=== PATIENT | male | born 1960 | race Caucasian/White ===

== ENCOUNTER 2016-07-02 07:34 | Day surgery (SDC) | payer BC ==
[2016-06-27 17:21] LABS: BASOPHILS 0.3 %; BASOPHILS ABSOLUTE 0.02 10/3/uL (0.0-0.16); EOSINOPHILS 0.5 %; EOSINOPHILS ABSOLUTE 0.03 10/3/uL (0.0-0.53); HEMATOCRIT 40.7 % (40.0-51.0); IMMATURE GRANULOCYTES 0.3 %; IMMATURE GRANULOCYTES ABSOLUTE 0.02 10/3/uL (0.0-0.11); LYMPHOCYTES 11.6 %; LYMPHOCYTES ABSOLUTE 0.74 10/3/uL (0.67-4.30); MEAN CORPUS HGB CONC 34.4 g/dL (32.0-36.0); MEAN PLATELET VOLUME 8.8 fL (9.2-13.0); MONOCYTES 8.2 %; MONOCYTES ABSOLUTE 0.52 10/3/uL (0.21-1.20); NEUTROPHILS 79.1 %; NEUTROPHILS ABSOLUTE 5.05 10/3/uL (2.02-8.40); PLATELET COUNT 220 10/3/uL (150-400); RBC DISTRIBUTION WIDTH 14.3 % (12.0-16.0); RED CELL COUNT 4.24 10/6/uL (4.7-6.1); WHITE BLOOD CELLS 6.4 10/3/uL (4.5-10.5)
[2016-06-27 17:22] LABS: MANUAL DIFF NO %
[2016-06-27 17:46] LABS: A/G RATIO 1.2 (0.7-1.9); ALBUMIN 4.2 G/DL (3.5-5.0); ALKALINE PHOSPHATASE 95 U/L (45-117); BUN (BLOOD UREA NITROGEN) 10 MG/DL (6-23); CALCIUM, SERUM 9.2 MG/DL (8.5-10.4); CHLORIDE, SERUM 100 MMOL/L (96-112); CO2 (CARBON DIOXIDE) 24 MMOL/L (24-34); CREATININE 0.94 MG/DL (0.70-1.30); GFR AFRICAN AMERICAN 106 ML/MIN (>=60); GFR NON AFRICAN AMERICAN 92 ML/MIN (>=60); GLOBULIN 3.5 G/DL (2.5-4.1); GLUCOSE, SERUM 113 MG/DL (60-99); POTASSIUM, SERUM 4.8 MMOL/L (3.5-5.3); SGOT(AST) 26 U/L (5-40); SGPT(ALT) 24 U/L (5-65); SODIUM, SERUM 138 MMOL/L (135-148); TOTAL BILIRUBIN 0.5 MG/DL (0-1.2); TOTAL PROTEIN 7.7 G/DL (6.0-8.5)
--- NOTE | ~2016-07-02 | PREOPHP ---
PreOp History and Physical [address] [place]. [address] NAME: MACK LAROSE : 64 STATUS : REG [facility]#: [id number] AGE: 56 ADM/REG DATE : 07/02/16 MR#: [id number] REPORT SERV DATE: 07/02/16 DICTATED BY: CARMEN WADE III DATE: 07/02/16 REPORT STATUS : Draft TRANSCRIBED BY: MODAntonella DATE: 07/02/16 HISTORY OF PRESENT ILLNESS: This is a 56-year-old male who comes to the operating room for removal of a right subclavian Port-A-Cath. The patient has a history of stage IV colorectal cancer. He is status post appropriate surgical treatment and chemotherapy. He has a right subclavian Port-A-Cath which has become dysfunctional. In addition, he has developed right internal jugular vein thrombosis. For this reason, he comes now for removal of his right subclavian vein Port-A-Cath. This procedure, the risks, benefits, and alternatives have been explained to him. PAST MEDICAL HISTORY: 1. History of stage IV colorectal cancer, status post appropriate surgical treatment with no evidence for disease currently. 2. History of internal jugular vein deep venous thrombosis. 3. History of tobacco abuse. MEDICATIONS: Eliquis, Benadryl, Nexium, Ativan. ALLERGIES: PENICILLIN. PHYSICAL EXAMINATION: GENERAL: He is a male, in no acute distress. He is alert and oriented x3. HEENT: Unremarkable. Cranial nerves II through XII normal. LUNGS: Clear. CARDIAC: Normal. He has a right infraclavicular subclavian Port-A-Cath in place. EXTREMITIES: Normal. ASSESSMENT: 1. 56-year-old male with history of stage IV colorectal disease, with no evidence for disease currently, with need for removal of right subclavian Port-A-Cath. 2. History of tobacco abuse. 3. History of right IJ thrombosis associated with right subclavian vein Port-A-Cath. PLAN: The patient comes to the operating room now for removal of his right subclavian Port-A Cath. This procedure, the risks, benefits, and alternatives, including not limited to the risk for bleeding, infection, air embolus, pericardial tamponade, dislodgement of the Port-A Cath tubing requiring extraction, and unforeseen complications including deep venous thrombosis, pulmonary embolus, myocardial infarction, stroke, pneumonia, and , have been explained to the patient. His questions have been answered. He understands the risks and agrees to the surgery as planned. NELSON/ELISA Carmen Aguilar History and Physical [address] [address] NAME: MACK LAROSE : 64 STATUS : REG [facility] PAT#: [id number] AGE: 56 ADM/REG DATE : 07/02/16 MR#: [id number] REPORT SERV DATE: 07/02/16 DICTATED BY: CARMEN WADE III DATE: 07/02/16 REPORT STATUS : Draft TRANSCRIBED BY: ELISA DATE: 07/02/16 Geovany Wade III, M.D. / [id number] CC: Param Womack III, M.D.
--- NOTE | ~2016-07-02 | PREOPHP ---
PreOp History and Physical [address] [place]. [address] NAME: MACK LAROSE : 64 STATUS : REG [facility]#: [id number] AGE: 56 ADM/REG DATE : 07/02/16 MR#: [id number] REPORT SERV DATE: 07/04/16 DICTATED BY: CARMEN WADE III DATE: 06/21/16 REPORT STATUS : Draft TRANSCRIBED BY: MODAntonella DATE: 06/21/16 HISTORY OF PRESENT ILLNESS: This 56-year-old male comes to the operating room for removal of a subclavian Port-A-Cath. The patient has a history of metastatic colorectal cancer. He is status post appropriate surgical treatment, chemotherapy, and treatment for his hepatic metastases. He is considered now to be in remission. He has recently developed a right internal jugular vein thrombosis related to the right subclavian vein Port-A-Cath. He comes now for removal of this Port-A-Cath. PAST MEDICAL HISTORY: 1. History of stage IV colorectal cancer with three documented hepatic metastases, two being surgically resected and the other being treated with radiofrequency ablation. 2. History of neoadjuvant chemotherapy prior to surgery. 3. History of right colon cancer, status post right colectomy performed on 09/21/2014. 4. Hypertension. 5. History of alcohol abuse. SOCIAL HISTORY: The patient is a physical therapist. He is . He has a history of daily alcohol use. FAMILY HISTORY: Positive for colon cancer. REVIEW OF SYSTEMS: Otherwise unremarkable. MEDICATIONS: As per medication list. ALLERGIES: TO PENICILLIN. PHYSICAL EXAMINATION: GENERAL: This is a male, in no acute distress. He is alert and oriented x3. He has some swelling of the neck and face. HEENT: Otherwise unremarkable. NEUROLOGIC: Cranial nerves II through XII are normal. LUNGS: Clear. CARDIAC: Normal. ABDOMEN: Soft and nontender. EXTREMITIES: Normal. LABORATORY DATA: Recent imaging studies showed right IJ thrombosis. ASSESSMENT: 1. A 56-year-old male with history of colorectal cancer with hepatic metastases, status post chemotherapy, surgery and radiofrequency ablation, now in remission. 2. Recent right internal jugular vein thrombosis related to his current Port-A-Cath. 3. History of alcohol abuse in the past. [address]Op History and Physical [address] [place]. [address] NAME: MACK LAROSE : 64 [place]US : [place] [facility] [place] [id number] AGE: 56 ADM/REG DATE : 07/02/16 MR#: [id number] REPORT SERV DATE: 07/04/16 DICTATED BY: CARMEN WADE III DATE: 06/21/16 REPORT STATUS : Draft TRANSCRIBED BY: MODL DATE: 06/21/16 4. Hypertension. PLAN: The patient comes to the operating room now for removal of his right subclavian Port-A Cath. This procedure, the risks, benefits, and alternatives including, but not limited to the risk for bleeding, infection, air embolus, pericardial tamponade, dislodgement of the Port-A-Cath tubing requiring extraction and unforeseen complications including deep venous thrombosis, pulmonary embolus, myocardial infarction, stroke, pneumonia, and have been explained to the patient prior to surgery. The increased risk for bleeding or thromboembolic complications while his Eliquis is held perioperatively has been explained. The patient's questions have been answered. He understands the risks and agrees to the surgery as planned. NELOSN/ELISA Carmen Wade III, M.D. / [id number]
--- NOTE | ~2016-07-02 | OP ---
Record Of Operation [facility] [address] [place]. [address] NAME: MACK LAROSE : 64 STATUS : REG [facility] PAT#: [id number] AGE: 56 ADM/REG DATE : 07/02/16 MR#: [id number] REPORT SERV DATE: 07/02/16 DICTATED BY: CARMEN WADE III DATE: 07/02/16 REPORT STATUS : Draft TRANSCRIBED BY: MODAntonella DATE: 07/02/16 DATE OF PROCEDURE: 07/02/2016 PREOPERATIVE DIAGNOSIS: History of colorectal cancer, with need for removal of nonfunctioning right subclavian vein Port-A-Cath associated with right internal jugular vein thrombosis. POSTOPERATIVE DIAGNOSIS: History of colorectal cancer, with need for removal of nonfunctioning right subclavian vein Port-A-Cath associated with right internal jugular vein thrombosis. PROCEDURE: Removal of right subclavian vein Port-A-Cath. SURGEON: Carmen Wade M.D. ANESTHESIA: General with intubation. COMPLICATIONS: None. ESTIMATED BLOOD LOSS: Less than 5 mL. SPECIMENS: Port-A-Cath for identification. DRAINS: None. LAP AND SPONGE COUNT: Correct x3. BRIEF HISTORY: This 56-year-old male has a history of stage IV colorectal cancer. He is status post appropriate surgical treatment and medical treatment. His right subclavian vein Port-A-Cath has been associated with right IJ thrombosis and is no longer functioning or being used and it was felt that removal was indicated. This procedure, the risks, benefits, and alternatives, including not limited to the risk for bleeding, infection, air embolus, pericardial tamponade, dislodgement of Port-A-Cath tubing requiring extraction, and unforeseen complications including deep venous thrombosis, pulmonary embolus, myocardial infarction, stroke, pneumonia, and , were explained to the patient prior to the surgery. The fact that he would be at increased risk for thromboembolic complications while his anticoagulation was held perioperatively was explained as well as increased risk of bleeding because of use of this medication (Eliquis). His questions were answered. He understood the risks and agreed to the surgery as planned. DESCRIPTION OF PROCEDURE: After being properly identified and after discussing risks of surgery with him again in the preoperative area, the patient was taken to the operating room and placed in supine position on the operating room table. General anesthesia was administered. He was intubated without difficulty. The upper chest and neck areas were prepped and draped sterilely in the usual fashion. After an appropriate "[facility]" [facility], a small incision was made directly over the right subclavian vein Port-A- Record Of Operation [facility] [address] [place]. [address] NAME: MACK LAROSE : 64 STATUS : REG [facility]#: [id number] AGE: 56 ADM/REG DATE : 07/02/16 MR#: [id number] REPORT SERV DATE: 07/02/16 DICTATED BY: CARMEN WADE III DATE: 07/02/16 REPORT STATUS : Draft TRANSCRIBED BY: ELISA DATE: 07/02/16 Cath over the previous incision. The incision was continued through the subcutaneous tissue. Hemostasis was controlled with cautery. The capsule around the Port-A-Cath was identified and opened. The sutures holding the Port-A-Cath housing in place were removed. The Port-A-Cath housing and tubing were removed. The entire tubing was removed. The pressure was held at the exit site to prevent air embolus. This exit site was closed with a 3-0 Vicryl suture. Hemostasis was assured. The subcutaneous tissue was closed with running 3-0 Vicryl suture. The skin was closed with running subcuticular 4-0 Monocryl stitch. The incision was injected with 0.5% Marcaine. Dressings were applied. Anesthesia was reversed. The patient was taken to the Recovery Room in stable condition. He tolerated the procedure well. His family was informed of the results of surgery. The patient was discharged when stable and comfortable. His family was advised to keep the wound clean and dry for [address] should not drive for two to three days after surgery while using narcotics and that he should resume his usual medications. They are advised that he should resume his Eliquis tomorrow. He was given a prescription for Percocet 7.5 one t.i.d., #12, as needed for pain, which he was advised not to use while driving. He was asked to return in two weeks for followup or sooner for fever, chills, wound drainage, or other problems prior to that time. NELSON/MODL Carmen Wade III, M.D. / [id number] CC: Param Womack III, M.D.
[~2016-07-02 07:34] MED LIST: ATV1 PO; BEN25 PO; CIP5 PO; ELIQUIS 5 MG TAB5 MG PO; NEXIUM20 M1 PO; NIZORSHAM T; NORV5 PO; NYSTATIN-TRIAMC15 GM TOP; PAX10 PO; PCET PO; PERCOCET1 TA2 PO; PRILO PO; XARELTO15 MG PO; ZANTAC 150 PO; ZYRTEC ALLGY10 MG PO
== END 2016-07-02 23:59 | disposition home or self-care (01) ==
LOC: SDC 07:34
PROVIDERS: Surgery
PROC: 0JPT3XZ Removal of Tunneled Vascular Access Device from Trunk Subcutaneous Tissue and Fascia, Percutaneous Approach (ICD-10-PCS; principal; 2016-07-02 07:45)
DX: T82.868A Thrombosis due to vascular prosthetic devices, implants and grafts, initial encounter (principal); F17.210 Nicotine dependence, cigarettes, uncomplicated; K21.9 Gastro-esophageal reflux disease without esophagitis; Z86.718 Personal history of other venous thrombosis and embolism; Z88.0 Allergy status to penicillin; Z79.01 Long term (current) use of anticoagulants; Z79.899 Other long term (current) drug therapy; Z85.038 Personal history of other malignant neoplasm of large intestine
CPT/HCPCS: 80053; 85025; 88300; 93005; A9270-GY; J0690; J2250; J2405; J3010